=== PATIENT | female | born 1980 | race Caucasian/White ===

== ENCOUNTER 2016-07-20 14:22 | Emergency (ER) | payer OTHER ==
[~2016-07-20 14:22] MED LIST: ACET50TA PO; ALBU17IN INH; ANUS2.5C2 TOP; BUSP10TA PO; CLAR10CA3 PO; LEVO150T7 PO; MOTR200T44 PO; MULTCHW13 PO
--- NOTE | 2016-07-20 16:31 | REP ---
Clinical: Cough and shortness of breath . Comparison: None . Technique: PA and lateral. Findings: The mediastinum and cardiac silhouette are normal. The lung clemens are clear and without acute consolidation, effusion, or pneumothorax. The skeletal structures are intact and normal. Impression: 1. No acute cardiopulmonary process. Signed by Negro Arnett MD 07/20/2016 04:23 P
[2016-07-20] MEDS ORDERED: AMOXICILLIN 250MG/5ML SUSP ORAL SYRINGE *ED As Ordered ONE (17:18)
--- NOTE | 2016-07-20 17:29 | EDDOCDS ---
Physician Documentation [facility] Name: Zee Rutledge Age: 36 yrs Sex: Female : 1980 Arrival Date: 07/20/2016 Time: 14:22 Bed I8 / 16 Private MD: Sloane Kang Disposition: 07/20/16 17:14 Discharged to Home/Self Care. Impression: Acute upper respiratory infection, unspecified, Acute lymphadenitis of face, head and neck, Tobacco use, Tobacco abuse counseling. - Condition is Stable. - Discharge Instructions: Smoking Cessation, Smoking Hazards, Upper Respiratory Infection, Adult. - Prescriptions for Amoxicillin 400 mg/5 mL Oral Suspension for Reconstitution - take 10 milliliter by ORAL route every 12 hours for 10 days; 220 milliliter. - Medication Reconciliation, Local Pharmacy Hours form. - Follow up: Sloane Kang; When: 1 week; Reason: Recheck today's complaints, Continuance of care. - Problem is new. - Symptoms are unchanged. - Notes: STOP SMOKING Keep hydrated Use Ibuprofen and Tylenol, as needed, for pain or fever >101.5 Use OTC cold medications to control symptoms Return to the ED for worsening swelling, inability to open your mouth more than the width of 2 fingers, difficult swallowing/drooling, high fever, difficulty breathing or any other concerns Historical: - Allergies: no known allergies; - Home Meds: 1. levothyroxine 200 mcg Oral tab 1 tab once daily 2. loratadine 10 mg Oral tab 1 tab once daily 3. BuSpar 10 mg oral tab daily 4. venlafaxine oral Unknown oral once daily 5. ventolin inhaler as needed - PMHx: Thyroid problem; Anxiety; Asthma; - PSHx: cyct removal; Tonsillectomy; - Social history: Smoking status: Patient uses tobacco products, current every day smoker. No barriers to communication noted, The patient speaks fluent Swedish, Speaks appropriately for age. - Family history: No immediate family members are acutely ill. - : The pt / caregiver states he / she is not on anticoagulants. Home medication list is obtained from the patient. - Exposure Risk Screening:: None identified. 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 7 in. (170.18 cm) (R); Pain 2/10; 17:26 BP 100 / 68; Pulse 88; Resp 18; Temp 97.4; Pulse Ox 98% on R/A; dls 14:24 Body Mass Index 31.32 (90.72 kg, 170.18 cm) gr2 MDM: 16:08 Chest, 2 View (pa\E\lat) Ordered. EDMS 16:46 Strep Screen, Nursing ordered. le 16:59 Financial registration complete. gjb 17:09 GATS (NEGATIVE STREP SCREEN) Ordered. EDMS 17:12 [facility] Payment Agreement was scanned into [employer] and attached to record. gjb 17:15 Amoxicillin (Peds >2mo, 45mg/kg) Suspension 500 mg PO once; max dose 1000mg ordered. le Administered Medications: 17:25 Drug: Amoxicillin (Peds >2mo, 45mg/kg) 500 mg [amoxicillin 250 mg/5 mL oral suspension dls (10 mL)] Route: PO; Signatures: Dispatcher [employer] EDMS Lilia Hall, RN Janessa Rockwell RN RN dls Westcott, Lisa, FNP FNP le Belles, Michael,RN RN Zulema Wasserman The chart was reviewed and I authenticate all verbal orders and agree with the evaluation and treatment provided.Attachments: 17:12 [facility] Payment Agreement gj [email or web address]
--- NOTE | 2016-07-20 17:29 | EDDOCDS ---
Nurse's Notes [facility] Name: Zee Rutledge Age: 36 yrs Sex: Female : 1980 Arrival Date: 07/20/2016 Time: 14:22 Bed I8 / 16 Private MD: Sloane Kang Diagnosis: Acute upper respiratory infection, unspecified;Acute lymphadenitis of face, head and neck;Tobacco use;Tobacco abuse counseling Presentation: 07/20 14:32 Presenting complaint: Patient states: swelling behind left ear and chest congestion for srm 4 days. Adult Sepsis Screening: The patient does not have new or worsening altered mentation. Patient's respiratory rate is less than 22. Systolic blood pressure is greater than 100. Patient has a qSOFA score of 0- Negative Sepsis Screen. Suicide/Homicide risk assessment- the patient denies having any suicidal and/or homicidal ideations and does not present with any other emotional, behavioral or mental health complaints. 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 Transition of care: patient was not received from another setting of care. 14:32 Acuity: LILLIAN Level 4 srm 14:32 Method Of Arrival: Walkin/Carried/Asstd srm Triage Assessment: 14:35 General: Appears in no apparent distress, Behavior is appropriate for age, cooperative. srm Pain: Denies pain. HIV screening NA for this visit Offered previously. 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 levothyroxine 200 mcg Oral tab 1 tab once daily 2. loratadine 10 mg Oral tab 1 tab once daily 3. BuSpar 10 mg oral tab daily 4. venlafaxine oral Unknown oral once daily 5. ventolin inhaler as needed - PMHx: Thyroid problem; Anxiety; Asthma; - PSHx: cyct removal; Tonsillectomy; - Social history: Smoking status: Patient uses tobacco products, current every day smoker. No barriers to communication noted, The patient speaks fluent Spanish, Speaks appropriately for age. - Family history: No immediate family members are acutely ill. - : The pt / caregiver states he / she is not on anticoagulants. Home medication list is obtained from the patient. - Exposure Risk Screening:: None identified. Screenin:11 Screening information is obtained from the patient. Fall risk: No risks identified. mb9 Assistance ADL's: requires no assistance with activities of daily living. Abuse/DV Screen: The patient / caregiver reports he/she is: not in a situation that causes fear, pain or injury. Nutritional screening: No deficits noted. Advance Directives: There is no active DNR order. home support is adequate. Assessment: 16:11 General: Appears in no apparent distress, Behavior is appropriate for age, cooperative. mb9 Pain: Denies pain. Respiratory: Airway is patent Respiratory effort is even, unlabored, Breath sounds are clear bilaterally. Reports cough that is. 17:05 Reassessment: Patient appears in no apparent distress at this time. General: Appears in mb9 no apparent distress, Behavior is appropriate for age, cooperative. Respiratory: Airway is patent Respiratory effort is even, unlabored. Vital Signs: 14:24 BP 105 / 72; Pulse 97; Resp 18 S; Temp 99.0(O); Pulse Ox 97% on R/A; Weight 90.72 kg gr2 (R); Height 5 ft. 7 in. (170.18 cm) (R); Pain 2/10; 17:26 BP 100 / 68; Pulse 88; Resp 18; Temp 97.4; Pulse Ox 98% on R/A; dls 14:24 Body Mass Index 31.32 (90.72 kg, 170.18 cm) gr2 Vitals: 14:24 Log In Time: July 20, 2016 at 14:24. gr2 ED Course: 14:23 Patient visited by Olivia Michelle. gr2 14:23 Patient moved to Waiting gr2 14:24 Sloane Kang is Private Physician. gr2 14:26 Patient visited by Olivia Michelle. gr2 14:26 Patient moved to Pre RCE gr2 14:33 Triage Initiated srm 15:58 Patient moved to I8 / 16 srm 16:11 Patient visited by Yg Kasper RN. mb9 16:11 The patient / caregiver is instructed regarding the plan of care and ED course. mb9 16:30 Kristen Camp FNP is PHCP. le 16:39 Chest, 2 View (pa\E\lat) Returned. EDMS 16:43 Patient visited by Kristen Camp FNP. le 16:43 Patient visited by Kristen Camp FNP. le 17:10 GATS (NEGATIVE STREP SCREEN) Sent. joana 17:12 [facility] Payment Agreement was scanned into [employer] and attached to record. tashi 17:14 Sloane Kang is Referral Physician. le 17:27 No IV's were initiated during this patient's visit. No procedures done that require dls assistance. Administered Medications: 17:25 Drug: Amoxicillin (Peds >2mo, 45mg/kg) 500 mg [amoxicillin 250 mg/5 mL oral suspension dls (10 mL)] Route: PO; Order Results: Radiology Order: Chest, 2 View (pa\E\lat) Test: Chest, 2 View (pa\E\lat) REASON FOR EXAMINATION: Cough;Shortness of Breath; Clinical: Cough and shortness of breath .; ; Comparison: None .; ; Technique: PA and lateral.; ; Findings:; The mediastinum and cardiac silhouette are normal. The lung clemens are clear and; without acute consolidation, effusion, or pneumothorax. The skeletal structures; are intact and normal.; ; Impression:; 1. No acute cardiopulmonary process.; ; ; Signed by; Negro Arnett MD 07/20/2016 04:23 P; Outcome: 17:14 Discharge ordered by Provider. le 17:26 Discharge Assessment: Patient awake, alert and oriented x 3. No cognitive and/or dls functional deficits noted. Patient verbalized understanding of disposition instructions. patient administered narcotics - no. The following High Risk Discharge criteria are identified: None. Discharged to home ambulatory. Condition: stable. Discharge instructions given to patient, Instructed on discharge instructions, follow up and referral plans. medication usage, Demonstrated understanding of instructions, medications, Pt was receptive of discharge instructions/ teaching. Prescriptions given X 1. No special radiology studies were completed. Property sent home with patient. 17:28 Patient left the ED. dls Signatures: Dispatcher [employer] EDMS Lilia Hall RN RN srm Scott, Debra, RN RN dls Westcott, Lisa, FNP FNP le Raymond, Gainslee gr2 Yg Kasper RN RN mb9 Beck, Gabriela gjb MTDD
--- NOTE | 2016-07-22 18:28 | EDDOCDS ---
Nurse's Notes [facility] Name: Zee Rutledge Age: 36 yrs Sex: Female : 1980 Arrival Date: 07/20/2016 Time: 14:22 Bed I8 / 16 Private MD: Sloane Kang Diagnosis: Acute upper respiratory infection, unspecified;Acute lymphadenitis of face, head and neck;Tobacco use;Tobacco abuse counseling Presentation: 07/20 14:32 Presenting complaint: Patient states: swelling behind left ear and chest congestion for srm 4 days. Adult Sepsis Screening: The patient does not have new or worsening altered mentation. Patient's respiratory rate is less than 22. Systolic blood pressure is greater than 100. Patient has a qSOFA score of 0- Negative Sepsis Screen. Suicide/Homicide risk assessment- the patient denies having any suicidal and/or homicidal ideations and does not present with any other emotional, behavioral or mental health complaints. 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 Transition of care: patient was not received from another setting of care. 14:32 Acuity: LILLIAN Level 4 srm 14:32 Method Of Arrival: Walkin/Carried/Asstd srm Triage Assessment: 14:35 General: Appears in no apparent distress, Behavior is appropriate for age, cooperative. srm Pain: Denies pain. HIV screening NA for this visit Offered previously. 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 levothyroxine 200 mcg Oral tab 1 tab once daily 2. loratadine 10 mg Oral tab 1 tab once daily 3. BuSpar 10 mg oral tab daily 4. venlafaxine oral Unknown oral once daily 5. ventolin inhaler as needed - PMHx: Thyroid problem; Anxiety; Asthma; - PSHx: cyct removal; Tonsillectomy; - Social history: Smoking status: Patient uses tobacco products, current every day smoker. No barriers to communication noted, The patient speaks fluent Uzbek, Speaks appropriately for age. - Family history: No immediate family members are acutely ill. - : The pt / caregiver states he / she is not on anticoagulants. Home medication list is obtained from the patient. - Exposure Risk Screening:: None identified. Screenin:11 Screening information is obtained from the patient. Fall risk: No risks identified. mb9 Assistance ADL's: requires no assistance with activities of daily living. Abuse/DV Screen: The patient / caregiver reports he/she is: not in a situation that causes fear, pain or injury. Nutritional screening: No deficits noted. Advance Directives: There is no active DNR order. home support is adequate. Assessment: 16:11 General: Appears in no apparent distress, Behavior is appropriate for age, cooperative. mb9 Pain: Denies pain. Respiratory: Airway is patent Respiratory effort is even, unlabored, Breath sounds are clear bilaterally. Reports cough that is. 17:05 Reassessment: Patient appears in no apparent distress at this time. General: Appears in mb9 no apparent distress, Behavior is appropriate for age, cooperative. Respiratory: Airway is patent Respiratory effort is even, unlabored. Vital Signs: 14:24 BP 105 / 72; Pulse 97; Resp 18 S; Temp 99.0(O); Pulse Ox 97% on R/A; Weight 90.72 kg gr2 (R); Height 5 ft. 7 in. (170.18 cm) (R); Pain 2/10; 17:26 BP 100 / 68; Pulse 88; Resp 18; Temp 97.4; Pulse Ox 98% on R/A; dls 14:24 Body Mass Index 31.32 (90.72 kg, 170.18 cm) gr2 Vitals: 14:24 Log In Time: July 20, 2016 at 14:24. gr2 ED Course: 14:23 Patient visited by Olivia Michelle. gr2 14:23 Patient moved to Waiting gr2 14:24 Sloane Kang is Private Physician. gr2 14:26 Patient visited by Olivia Michelle. gr2 14:26 Patient moved to Pre RCE gr2 14:33 Triage Initiated srm 15:58 Patient moved to I8 / 16 srm 16:11 Patient visited by Yg Kasper RN. mb9 16:11 The patient / caregiver is instructed regarding the plan of care and ED course. mb9 16:30 Kristen Camp FNP is PHCP. le 16:39 Chest, 2 View (pa\E\lat) Returned. EDMS 16:43 Patient visited by Kristen Camp FNP. le 16:43 Patient visited by Zoë, Kristen, POOL TABLE MECHANIC. le 17:10 GATS (NEGATIVE STREP SCREEN) Sent. mb9 17:12 [facility] Payment Agreement was scanned into [employer] and attached to record. gjb 17:14 Sloane Kang is Referral Physician. le 17:27 No IV's were initiated during this patient's visit. No procedures done that require dls assistance. 20:42 T-Sheet-- Draft Copy was scanned into [employer] and attached to record. klr Administered Medications: 17:25 Drug: Amoxicillin (Peds >2mo, 45mg/kg) 500 mg [amoxicillin 250 mg/5 mL oral suspension dls (10 mL)] Route: PO; Order Results: Lab Order: GATS (NEGATIVE STREP SCREEN); SPEC'M 07/20/16 00:00 Test: GATS CULTURE (NEG STREP SCR); Value: GATS RESULT NEGATIVE FOR STREP PYOGENES (GROUP A); Status: F Test: GATS CULTURE (NEG STREP SCR); Value: <EXTERNAL COMMENT eCWMed> FULL REPORT IN LAB NOTES (eCW and Medent).; Status: F Radiology Order: Chest, 2 View (pa\E\lat) Test: Chest, 2 View (pa\E\lat) REASON FOR EXAMINATION: Cough;Shortness of Breath; Clinical: Cough and shortness of breath .; ; Comparison: None .; ; Technique: PA and lateral.; ; Findings:; The mediastinum and cardiac silhouette are normal. The lung clemens are clear and; without acute consolidation, effusion, or pneumothorax. The skeletal structures; are intact and normal.; ; Impression:; 1. No acute cardiopulmonary process.; ; ; Signed by; Negro Arnett MD 07/20/2016 04:23 P; Outcome: 17:14 Discharge ordered by Provider. le 17:26 Discharge Assessment: Patient awake, alert and oriented x 3. No cognitive and/or dls functional deficits noted. Patient verbalized understanding of disposition instructions. patient administered narcotics - no. The following High Risk Discharge criteria are identified: None. Discharged to home ambulatory. Condition: stable. Discharge instructions given to patient, Instructed on discharge instructions, follow up and referral plans. medication usage, Demonstrated understanding of instructions, medications, Pt was receptive of discharge instructions/ teaching. Prescriptions given X 1. No special radiology studies were completed. Property sent home with patient. 17:28 Patient left the ED. dls Signatures: Dispatcher [employer] EDMS Lilia Hall, RN RN srm Janessa Kang RN RN dls Kristen Camp, Olivia Burt 2 Yg Kasper RN RN mb9 Zulema Carter Kathie klr Chart Complete MTDD
--- NOTE | 2016-07-22 18:28 | EDDOCDS ---
Physician Documentation [facility] Name: Zee Rutledge Age: 36 yrs Sex: Female : 1980 Arrival Date: 07/20/2016 Time: 14:22 Bed I8 / 16 Private MD: Sloane Kang Disposition: 07/20/16 17:14 Discharged to Home/Self Care. Impression: Acute upper respiratory infection, unspecified, Acute lymphadenitis of face, head and neck, Tobacco use, Tobacco abuse counseling. - Condition is Stable. - Discharge Instructions: Smoking Cessation, Smoking Hazards, Upper Respiratory Infection, Adult. - Prescriptions for Amoxicillin 400 mg/5 mL Oral Suspension for Reconstitution - take 10 milliliter by ORAL route every 12 hours for 10 days; 220 milliliter. - Medication Reconciliation, Local Pharmacy Hours form. - Follow up: Sloane Kang; When: 1 week; Reason: Recheck today's complaints, Continuance of care. - Problem is new. - Symptoms are unchanged. - Notes: STOP SMOKING Keep hydrated Use Ibuprofen and Tylenol, as needed, for pain or fever >101.5 Use OTC cold medications to control symptoms Return to the ED for worsening swelling, inability to open your mouth more than the width of 2 fingers, difficult swallowing/drooling, high fever, difficulty breathing or any other concerns Historical: - Allergies: no known allergies; - Home Meds: 1. levothyroxine 200 mcg Oral tab 1 tab once daily 2. loratadine 10 mg Oral tab 1 tab once daily 3. BuSpar 10 mg oral tab daily 4. venlafaxine oral Unknown oral once daily 5. ventolin inhaler as needed - PMHx: Thyroid problem; Anxiety; Asthma; - PSHx: cyct removal; Tonsillectomy; - Social history: Smoking status: Patient uses tobacco products, current every day smoker. No barriers to communication noted, The patient speaks fluent [place], Speaks appropriately for age. - Family history: No immediate family members are acutely ill. - : The pt / caregiver states he / she is not on anticoagulants. Home medication list is obtained from the patient. - Exposure Risk Screening:: None identified. 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 7 in. (170.18 cm) (R); Pain 2/10; 17:26 BP 100 / 68; Pulse 88; Resp 18; Temp 97.4; Pulse Ox 98% on R/A; dls 14:24 Body Mass Index 31.32 (90.72 kg, 170.18 cm) gr2 MDM: 16:08 Chest, 2 View (pa\E\lat) Ordered. EDMS 16:46 Strep Screen, Nursing ordered. le 16:59 Financial registration complete. gjb 17:09 GATS (NEGATIVE STREP SCREEN) Ordered. EDMS 17:12 [facility] Payment Agreement was scanned into [employer] and attached to record. gjb 17:15 Amoxicillin (Peds >2mo, 45mg/kg) Suspension 500 mg PO once; max dose 1000mg ordered. le 20:42 T-Sheet-- Draft Copy was scanned into [employer] and attached to record. klr Administered Medications: 17:25 Drug: Amoxicillin (Peds >2mo, 45mg/kg) 500 mg [amoxicillin 250 mg/5 mL oral suspension dls (10 mL)] Route: PO; Signatures: Dispatcher [employer] EDMS Lilia Hall RN Janessa Rockwell RN RN dls Westcott, Lisa, COMPLEX DIRECTOR COMPLEX DIRECTOR Yg ArambulaRN RN Zulema Wasserman Kathie kljacob The chart was reviewed and I authenticate all verbal orders and agree with the evaluation and treatment provided.Attachments: 17:12 [facility] Payment Agreement [facility] 20:42 T-Sheet-- Draft Copy klr Chart Complete MTDD
--- NOTE | 2016-07-22 18:28 | EDDOCDS ---
Physician Documentation [facility] Name: Zee Rutledge Age: 36 yrs Sex: Female : 1980 Arrival Date: 07/20/2016 Time: 14:22 Bed I8 / 16 Private MD: Sloane Kang Disposition: 07/20/16 17:14 Discharged to Home/Self Care. Impression: Acute upper respiratory infection, unspecified, Acute lymphadenitis of face, head and neck, Tobacco use, Tobacco abuse counseling. - Condition is Stable. - Discharge Instructions: Smoking Cessation, Smoking Hazards, Upper Respiratory Infection, Adult. - Prescriptions for Amoxicillin 400 mg/5 mL Oral Suspension for Reconstitution - take 10 milliliter by ORAL route every 12 hours for 10 days; 220 milliliter. - Medication Reconciliation, Local Pharmacy Hours form. - Follow up: Sloane Kang; When: 1 week; Reason: Recheck today's complaints, Continuance of care. - Problem is new. - Symptoms are unchanged. - Notes: STOP SMOKING Keep hydrated Use Ibuprofen and Tylenol, as needed, for pain or fever >101.5 Use OTC cold medications to control symptoms Return to the ED for worsening swelling, inability to open your mouth more than the width of 2 fingers, difficult swallowing/drooling, high fever, difficulty breathing or any other concerns Historical: - Allergies: no known allergies; - Home Meds: 1. levothyroxine 200 mcg Oral tab 1 tab once daily 2. loratadine 10 mg Oral tab 1 tab once daily 3. BuSpar 10 mg oral tab daily 4. venlafaxine oral Unknown oral once daily 5. ventolin inhaler as needed - PMHx: Thyroid problem; Anxiety; Asthma; - PSHx: cyct removal; Tonsillectomy; - Social history: Smoking status: Patient uses tobacco products, current every day smoker. No barriers to communication noted, The patient speaks fluent Israeli, Speaks appropriately for age. - Family history: No immediate family members are acutely ill. - : The pt / caregiver states he / she is not on anticoagulants. Home medication list is obtained from the patient. - Exposure Risk Screening:: None identified. 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 7 in. (170.18 cm) (R); Pain 2/10; 17:26 BP 100 / 68; Pulse 88; Resp 18; Temp 97.4; Pulse Ox 98% on R/A; dls 14:24 Body Mass Index 31.32 (90.72 kg, 170.18 cm) gr2 MDM: 16:08 Chest, 2 View (pa\E\lat) Ordered. EDMS 16:46 Strep Screen, Nursing ordered. le 16:59 Financial registration complete. gjb 17:09 GATS (NEGATIVE STREP SCREEN) Ordered. EDMS 17:12 [facility] Payment Agreement was scanned into [employer] and attached to record. gjb 17:15 Amoxicillin (Peds >2mo, 45mg/kg) Suspension 500 mg PO once; max dose 1000mg ordered. le 20:42 T-Sheet-- Draft Copy was scanned into [employer] and attached to record. klr Administered Medications: 17:25 Drug: Amoxicillin (Peds >2mo, 45mg/kg) 500 mg [amoxicillin 250 mg/5 mL oral suspension dls (10 mL)] Route: PO; Signatures: Dispatcher [employer] EDMS Lilia Hall RN Janessa Rockwell RN RN dls Westcott, Lisa, TECHNICAL SALES ASSOCIATE TECHNICAL SALES ASSOCIATE Yg ArambulaRN RN Zulema Wasserman Kathie kljacob The chart was reviewed and I authenticate all verbal orders and agree with the evaluation and treatment provided.Attachments: 17:12 [facility] Payment Agreement [facility] 20:42 T-Sheet-- Draft Copy klr Chart Complete MTDD
== END 2016-07-20 17:28 | disposition home or self-care (01) ==
LOC: M ED 14:22
DX: J06.9 Acute upper respiratory infection, unspecified (principal); L04.0 Acute lymphadenitis of face, head and neck; J45.909 Unspecified asthma, uncomplicated; E07.9 Disorder of thyroid, unspecified; F41.9 Anxiety disorder, unspecified; Z79.899 Other long term (current) drug therapy; F17.210 Nicotine dependence, cigarettes, uncomplicated

== ENCOUNTER → 2016-07-21 | Outpatient (CLI) | payer OTHER | LOC: M LAB 07-20 14:44 | PROVIDERS: ATTEND Internal Medicine Rheumatology | DX: M19.90 Unspecified osteoarthritis, unspecified site (principal) ==

== ENCOUNTER 2016-12-07 09:32 | Emergency (ER) | payer OTHER ==
[~2016-12-07] VITALS: Ht 170.2 cm; Wt 101.2 kg
[~2016-12-07 09:32] MED LIST changes: -MULTCHW13 PO; +MULTCHW14 PO
[2016-12-07 09:33] VITALS: BP 131/60
[2016-12-07] MEDS ORDERED: plaquenil (09:42)
[2016-12-07] MEDS ORDERED: LEVO200T4 (09:42)
[2016-12-07] MEDS ORDERED: HYDR10SO PO (10:10)
[2016-12-07] MEDS ORDERED: CLIN75REC PO (10:10)
== END 2016-12-07 10:16 | disposition home or self-care (01) ==
LOC: M ED 09:32
DX: K04.7 Periapical abscess without sinus (principal); J45.909 Unspecified asthma, uncomplicated; E03.9 Hypothyroidism, unspecified; F41.9 Anxiety disorder, unspecified; Z79.899 Other long term (current) drug therapy

== ENCOUNTER → 2017-08-03 | Outpatient (CLI) | payer OTHER ==
[2017-08-03 18:25] LABS: FREE T3 2.8 PG/ML (2.2-4.0); FREE T4 1.57 NG/DL (0.76-1.46); THYROID STIMULATING HORMONE 0.773 uIU/ML (0.358-3.740)
== END ==
LOC: M LAB 17:08
DX: E03.4 Atrophy of thyroid (acquired) (principal)
CPT/HCPCS: 84443

== ENCOUNTER → 2017-11-16 | Outpatient (CLI) | payer OTHER | LOC: M WUC 17:08 | DX: M51.37 Other intervertebral disc degeneration, lumbosacral region (principal) | CPT/HCPCS: 72110 ==

== ENCOUNTER → 2017-11-25 | Outpatient (REF) | LOC: M SMT 11:05 | DX: Z02.71 Encounter for disability determination (principal) ==

== ENCOUNTER → 2018-07-01 | Outpatient (CLI) | payer OTHER ==
[~2018-07-01] MED LIST changes: -ACET50TA PO; +CLIN75REC PO; +E-Z-GAS II EFFERVESCENT PACKET (SODIUM BICARB./CITRIC ACID/SIMETHICONE) As Ordered ONE; +E-Z-HD 98% w/w 340GM SUSP BTL As Ordered ONE; +E-Z-PAQUE 96% w/w SUSP 176GM BTL As Ordered ONE; +HYDR10SO PO; +ISOVUE-370 76% 100ML VIAL (Q9967) As Ordered ONE; +LEVO200T4; +MAPA500T2 PO; +plaquenil
--- NOTE | 2018-07-01 12:29 | REP ---
SOFT TISSUE CT STUDY OF THE NECK WITH IV CONTRAST: HISTORY: Bilateral localized swelling. Neck mass. Dysphagia. Comparison neck CT study is from December 12, 2010. CT CONTRAST DOSE: 75 mL of intravenous Isovue 370. CT FINDINGS: The parotid and submandibular glands are normal and symmetric. 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 No ectopic thyroid tissue is appreciated. No evidence of neck mass or adenopathy seen. No vascular abnormality is noted. Normal-sized anterior lymph nodes are visible. Epiglottis is normal. Laryngeal and subglottic airway is unremarkable. Peritonsillar soft tissues are unremarkable. The visualized paranasal sinuses are clear. No intraorbital abnormality is seen. The lung apices are clear. IMPRESSION: There is no evidence of neck mass or adenopathy. Very hypoplastic thyroid gland again noted. Electronically Signed by Evans Estrada MD 07/01/2018 03:17 P
--- NOTE | 2018-07-02 10:19 | REP ---
Esophagram The procedure was performed under the direct supervision of Dr. Doe. The images were reviewed with Dr. Doe. A single view PA chest x-ray is submitted as a petroleum engineering teacher film. The superior mediastinal structures are midline. The heart size is within normal limits. The lungs are clear. Liquid barium and gas producing granules were given in the erect position as well as liquid barium in the prone oblique positions in order to perform a double contrast esophagram examination. The oral and pharyngeal stages of deglutition are unremarkable. Esophageal transport is prompt and efficient and there is no esophagitis, stricture, mucosal ring or hiatal hernia. Gastroesophageal reflux is not demonstrated on this examination. Impression: Essentially unremarkable double contrast esophagram examination. 0.6 minutes of fluoro time was utilized for this procedure. Reviewed by JAMARI Cervantes 07/01/2018 05:05 P Electronically Signed by Hola Doe MD 07/02/2018 10:10 A
== END ==
LOC: M RAD 08:56
PROVIDERS: ATTEND Otolaryngology
DX: R13.10 Dysphagia, unspecified (principal); R22.1 Localized swelling, mass and lump, neck; E03.1 Congenital hypothyroidism without goiter
CPT/HCPCS: 70491; 74220; Q9967

== ENCOUNTER → 2018-08-07 | Outpatient (CLI) | payer OTHER ==
[~2018-08-07] MED LIST changes: -E-Z-GAS II EFFERVESCENT PACKET (SODIUM BICARB./CITRIC ACID/SIMETHICONE) As Ordered ONE; -E-Z-HD 98% w/w 340GM SUSP BTL As Ordered ONE; -E-Z-PAQUE 96% w/w SUSP 176GM BTL As Ordered ONE; -ISOVUE-370 76% 100ML VIAL (Q9967) As Ordered ONE
== END ==
LOC: M PLARAD 11:00
PROVIDERS: ATTEND Physician Assistant
DX: M48.061 Spinal stenosis, lumbar region without neurogenic claudication (principal)

== ENCOUNTER 2018-09-15 11:05 | Outpatient (CLI) | payer OTHER ==
[2018-09-15] MEDS ORDERED: MIDAZOLAM INJ 2 MG/2 ML VIAL (J2250) As Ordered ONE (11:36)
[2018-09-15 12:50] VITALS: BP 114/69
--- NOTE | 2018-09-15 14:19 | REP ---
MR LUMBAR SPINE WITHOUT CONTRAST: HISTORY: Back pain. COMPARISON: 08/14/2015. Decreased signal intensity on T2-weighted images is present in the L4-5 and L5-S1 intervertebral discs. The discs are decreased in height. These findings are consistent with disc degeneration. A small central disc protrusion is present at the L1-2 level. There is minimal compression of the thecal sac. The L1 nerves exit the neural foramina without compression. A diffuse disc bulge is present at the L2-3 level. There is minimal compression of the thecal sac. There is hypertrophy of the posterior articulating facets. The L2 nerves exit the neural foramina without compression . A diffuse disc bulge is present at the L3-4 level. There is hypertrophy of the ligamenta flava and posterior articulating facets. These findings produce mild central canal stenosis. The L3 nerves exit the neural foramina without compression. A diffuse disc bulge and small disc extrusion central and eccentric to the left are present at the L4-5 level. There is inferior migration of disc material. There is hypertrophy of the ligamentum flava and posterior articulating facets. These findings produce severe central canal stenosis. The L4 nerves exit the neural foramina without compression. A diffuse disc bulge and small central disc protrusion are present at the L5-S1 level. There is minimal compression of the thecal sac and left S1 nerve as it exits the thecal sac. There is hypertrophy of the posterior articulating facets. The L5 nerves exit the neural foramina without compression. The conus medullaris terminates at the level of the L1-2 intervertebral disc. There is a possible small syrinx. Increased signal intensity on T2-weighted images is present in the endplates of the L4 and 5 vertebral bodies. This represents degenerative change. IMPRESSION: 1. Small central disc protrusion at the L1-2 level with minimal thecal sac compression. 2. Diffuse disc bulge at the L2-3 level with minimal thecal sac compression. 3. Mild central canal stenosis at the L3-4 level secondary to disc bulge, ligamentous and facet hypertrophy. 4. Severe central canal stenosis at the L4-5 level secondary to disc bulge, disc extrusion and ligamentous and facet hypertrophy. 5. Diffuse disc bulge and small central disc protrusion at the L5-S1 level with minimal compression of the thecal sac and left S1 nerve as it exits the thecal sac. 6. There is a possible small syrinx in the conus medullaris. MR of the thoracic spine is recommended for further evaluation. Electronically Signed by Jason Witt MD 09/15/2018 02:23 P
== END 2018-09-15 13:10 | disposition home or self-care (01) ==
LOC: M SDC 11:05
PROVIDERS: ATTEND Physician Assistant
DX: M51.26 Other intervertebral disc displacement, lumbar region (principal); M51.27 Other intervertebral disc displacement, lumbosacral region; M48.061 Spinal stenosis, lumbar region without neurogenic claudication
CPT/HCPCS: 72148; 99156; 99157; J2250

== ENCOUNTER → 2019-05-28 | Outpatient (CLI) | payer OTHER ==
[2019-05-28 14:48] LABS: BLOOD UREA NITROGEN 9 MG/DL (7-18); CREATININE FOR GFR 0.93 MG/DL (0.55-1.30); GLOMERULAR FILTRATION RATE > 60.0 (>60)
== END ==
LOC: M LAB 13:04
PROVIDERS: ATTEND Physical Medicine & Rehabilitation
DX: M47.27 Other spondylosis with radiculopathy, lumbosacral region (principal)

== ENCOUNTER → 2019-07-29 | Outpatient (CLI) | payer OTHER ==
[~2019-07-29] MED LIST changes: +MIDAZOLAM INJ 2 MG/2 ML VIAL (J2250) As Ordered ONE; +PROHANCE 279.3MG/ML 15ML VIAL (A9576) As Ordered ONE; +PROHANCE 279.3MG/ML 5ML VIAL (A9576) As Ordered ONE; +fentaNYL 100 MCG/2 ML INJECTION (J3010) As Ordered ONE
[2019-07-29 16:35] VITALS: BP 129/68
--- NOTE | 2019-07-29 16:56 | REPVR ---
PROCEDURE INFORMATION: Exam: MR Cervical Spine Without and With Contrast Exam date and time: 07/29/2019 4:05 PM Age: 39 years old Clinical indication: Neck pain; Patient HX: Exam done under sedation; Additional info: Syringomyelia and syringomelia TECHNIQUE: Imaging protocol: Multiplanar magnetic resonance images of the cervical spine without and with intravenous contrast. Contrast material: PROHANCE; Contrast volume: 19 ml; Contrast route: IV; COMPARISON: CT Neck with contrast 07/01/2018 9:23 AM FINDINGS: Vertebrae: There is mild reversal the normal cervical lordosis. Spinal cord: There is increased signal in the cervical spinal cord at the C6 level just below the marked cord compression by a disc herniation at the C5-C6 level. T C2-C3: No disc disease. No spinal stenosis or narrowed neural foramen. C3-C4: No disc disease. No spinal stenosis or narrowed neural foramen. C4-C5: Diffusely bulging annulus which slightly posteriorly displaces the cervical spinal cord and narrows the spinal canal to 7.9 mm without cord compression. There is moderate narrowing of the right neural foramen. C5-C6: Large central/right paracentral disc herniation extending superiorly and inferiorly from the disc space and compressing the cervical spinal cord and narrowing the AP dimension of the canal to 6 mm. It also obstructs the right neural foramen likely affecting the right C6 nerve root. Increased signal is seen within the spinal cord bilaterally just below the level the disc herniation with possible cystic encephalomalacia. C6-C7: Asymmetrically bulging annulus and possible right paracentral disc herniation posteriorly displacing the cervical spinal cord without definite compression. The AP dimension of the spinal canal is 7.8 mm. There is moderate narrowing of the left neural foramen. Diffuse increased signal is seen in the cervical spinal cord. C7-T1: No disc disease. No spinal stenosis or narrowed neural foramen. Vertebral arteries: Expected flow voids in the vertebral arteries. Soft tissues: There is enhancement in the cervical spinal cord at the C6 level. IMPRESSION: There is marked compression of the cervical spinal cord at C5-C6 level predominantly to the right of midline with increased signal and enhancement in the cervical spinal cord just below the disc herniation and extending inferiorly to the C6-C7 disc space level. There is a small right paracentral disc herniation at C6-C7 without significant cord compression. Electronically signed by: Harleen Lopez On 07/29/2019 16:55:46 PM
--- NOTE | 2019-07-29 17:20 | REPVR ---
PROCEDURE INFORMATION: Exam: MR Thoracic Spine Without and With Contrast Exam date and time: 07/29/2019 4:05 PM Age: 39 years old Clinical indication: Pain in thoracic spine; With radiculopathy; Bilateral; Additional info: Syringomyelia and syringomelia TECHNIQUE: Imaging protocol: Multiplanar magnetic resonance images of the thoracic spine without and with intravenous contrast. Contrast material: PROHANCE; Contrast volume: 19 ml; Contrast route: IV; COMPARISON: CR SPINE LS COMPLETE 11/16/2017 5:14 PM FINDINGS: Vertebrae: No acute fractures in the thoracic spine. The thoracic spine alignment is normal. Spinal cord: Normal signal. No cord compression. T1-T2: No significant disc disease. No significant spinal canal stenosis. T2-T3: No significant disc disease. No significant spinal canal stenosis. T3-T4: No significant disc disease. No significant spinal canal stenosis. T4-T5: No significant disc disease. No significant spinal canal stenosis. T5-T6: Mild posterior left paracentral disc bulging. No significant spinal canal stenosis. T6-T7: Mild posterior left paracentral disc bulging. No significant spinal canal stenosis. T7-T8: Mild chronic degenerative disc desiccation with loss of normal T2 and STIR signal in the disc. Mild broad-based posterior disc bulging. No significant spinal canal stenosis. T8-T9: Moderate posterior left paracentral and circumferential disc bulging with mild left-sided spinal stenosis and left neuroforaminal stenosis. Chronic degenerative vertebral body endplate osteophytosis anteriorly at T8/T9. T9-T10: Chronic degenerative disc desiccation. No significant spinal canal stenosis. T10-T11: Chronic degenerative disc desiccation. No significant spinal canal stenosis. T11-T12: No significant disc disease. No significant spinal canal stenosis. Soft tissues: Unremarkable. No significant soft tissue or bony post IV contrast enhancement. IMPRESSION: 1. No acute fractures in the thoracic spine. The thoracic spine alignment is normal. 2. Multiple levels of chronic degenerative discovertebral disease at T5 through T11, as detailed above. 3. Mild left-sided spinal canal stenosis and left neuroforaminal stenosis at T8/T9. Electronically signed by: Michael Shelton On 07/29/2019 17:20:35 PM
== END ==
LOC: M RAD 12:49
PROVIDERS: ATTEND Physical Medicine & Rehabilitation
DX: G95.0 Syringomyelia and syringobulbia (principal); M50.223 Other cervical disc displacement at C6-C7 level; M50.03 Cervical disc disorder with myelopathy, cervicothoracic region; M50.020 Cervical disc disorder with myelopathy, mid-cervical region, unspecified level
CPT/HCPCS: 72156; 72157; A9576; J2250; J3010

== ENCOUNTER 2019-08-19 06:05 | Inpatient (IN) | payer OTHER ==
--- NOTE | 2019-08-18 11:28 | HPE ---
DATE OF ADMISSION: 08/19/2019 ATTENDING PHYSICIAN: Dr. Gildardo Cheung CHIEF COMPLAINT: Cervical myelopathy with spastic tetraplegia. Severe cervical spinal stenosis at C5-6. Cervical spinal stenosis at C6-7. Cervical spondylosis at C4 through C7. HISTORY: The patient is a 39-year-old female with neck pain, with upper extremity paraesthesias, weakness in right arm and worsening balance trouble. She has been using a cane for ambulation. Issues with urinary incontinence that have been attributed to . She has failed to improve with conservative treatment. She has consented for an elective anterior cervical decompression and fusion procedure with Dr. Cheung, possibly three level from C4-5 through C6-7. CURRENT MEDICATIONS: - baclofen 10 mg every 6 hours as needed for spasm - albuterol inhaler 2 puffs every 4 hours as needed - Zocor 10 mg daily - loratadine 10 mg daily - levothyroxine 200 mcg daily - buspirone 10 mg daily - naproxen 500 mg twice daily ALLERGIES: GABAPENTIN. CHRONIC MEDICAL CONDITIONS: Allergies, asthma, hyperlipidemia, hypothyroid, anxiety, depression, lupus. SOCIAL HISTORY: The patient is a tobacco user and just quit approximately 2 days ago. The patient rarely uses alcohol. REVIEW OF SYSTEMS: The patient denies fevers, chills, nausea, vomiting or diarrhea. She denies chest pain, shortness of breath, dizziness or headaches. She denies any recent abdominal pain. She denies any recent upper respiratory or urinary tract infection symptoms. She does continue to have neck pain with bilateral upper extremity paresthesias with weakness in the right upper extremity in addition to problems with balance and gait. PHYSICAL EXAMINATION: GENERAL: Well-nourished, well-developed female who appears to be in no apparent distress. She is alert, oriented and cooperative. Mood and affect seem appropriate. VITAL SIGNS: Blood pressure 138/76, heart rate 73, respirations 16. Height 5 feet 6 inches. Weight 213.8 pounds. Temperature 98.3. NECK: Supple without lymphadenopathy. HEART: Regular rate and rhythm. LUNGS: Clear to auscultation bilaterally. ABDOMEN: Bowel sounds are present. Abdomen is soft and nontender to palpation. MUSCULOSKELETAL: The patient does have a wide-based gait. Babinski is upgoing bilaterally. Clonus is 5 beats on the right lower extremity and 3 beats on the left. Straight leg raise bilaterally is negative. Deep tendon reflexes are 3+ at both knees and 2+ at both ankles. The patient does have positive Gwendolyn's test bilaterally in upper extremities. Brachial radialis is inverted on the left, 2 on the right. Triceps is 3 bilaterally in addition to the biceps being 3 bilaterally. She does not have neck pain with neck rotation in either direction. Negative Spurling's test. She does have decreased sensation in both hands and in the right arm. Weakness with abduction of the shoulder on the right compared to the left. Elements of weakness in the right more than left upper extremity which is diffuse. Weakness at the tibialis anterior and iliopsoas lower extremities. No tenderness to palpation around the neck. Voice is clear. Cervical spine x-rays, six views of the cervical spine, there are multilevel degenerative changes noted most pronounced at C4-5, C5-6, and C6-7. No acute fractures or dislocations are observed. There is a decrease in the disc height at these levels as well. Osteophytes noted posteriorly at C4 through C7. There is a straightening of the normal curvature but no obvious spondylolisthesis noted. MRI of the cervical spine, marked compression of the cervical spinal cord at C5-6 level predominantly to the right of midline with increase signal and enhancement in the cervical spinal cord just below the disc herniation and extending inferiorly to the C6-C7 disc space level. There is a small right paracentral disc herniation at C6-C7 without significant cord compression. IMPRESSION: Cervical myelopathy, NICOLE-D spastic tetraplegia. Severe cervical spinal stenosis at C5-6. Cervical spinal stenosis at C6-7. Cervical spondylosis at C4-5, C5-6, and C6-7. PLAN: The patient consented for an elective anterior cervical decompression and fusion procedure at C4-5, C5-6, and C6-7 with donor graft and likely partial corpectomy. Neuro monitoring may be considered during surgery with possible bone stimulator use postoperatively.
[~2019-08-19] VITALS: Ht 170.2 cm; Wt 99.8 kg
[2019-08-19] VITALS (7 sets, daily range): BP systolic 133–146; BP diastolic 78–90
[2019-08-19] MEDS: ceFAZolin SOD 2 GM in IV 1 EA IV ONE ×2 (06:00→07:57)
[~2019-08-19 06:05] MED LIST changes: +BACL10TA2 PO; -LEVO200T4; +LEVO200T4 PO; +LR 1,000 ML IV ONE; -MIDAZOLAM INJ 2 MG/2 ML VIAL (J2250) As Ordered ONE; +NAPR-885 PO; +PERCOCET 5MG/325MG TAB PO ONE; -PROHANCE 279.3MG/ML 15ML VIAL (A9576) As Ordered ONE; -PROHANCE 279.3MG/ML 5ML VIAL (A9576) As Ordered ONE; +SIMV20TA22 PO; +VENTAER INH; +VITA50005 PO; +VITAD1000T PO; -fentaNYL 100 MCG/2 ML INJECTION (J3010) As Ordered ONE
[2019-08-19 06:46] LABS: HEMATOCRIT 41.6 % (36.0-47.0); MEAN CORPUSCULAR HGB CONC 33.7 g/dl (32.0-36.5); PLATELET COUNT, AUTOMATED 309 10^3/uL (150-450); RED BLOOD COUNT 4.38 10^6/uL (4.00-5.40); WHITE BLOOD COUNT 8.9 10^3/uL (4.0-10.0)
[2019-08-19] MEDS ORDERED: MIDAZOLAM INJ 2 MG/2 ML VIAL (J2250) As Ordered ONE (06:47)
[2019-08-19] MEDS ORDERED: ePHEDrine SULFATE 25 MG/5 ML(5MG/ML) SYRINGE As Ordered ONE ×2 (06:48→08:49)
[2019-08-19] MEDS ORDERED: fentaNYL 250 MCG/5 ML INJECTION (J3010) As Ordered ONE (06:48)
[2019-08-19] MEDS ORDERED: PHENYLephrine HCL 500 MCG/5 ML (100MCG/ML) SYRINGE (J2370) As Ordered ONE (06:48)
[2019-08-19] MEDS ORDERED: SUGAMMADEX SODIUM 500 MG/5 ML VIAL (BRIDION) As Ordered ONE ×3 (06:51→06:59)
[2019-08-19] MEDS ORDERED: LIDOCAINE 2% INJ 100 MG/5 ML SDV (FOR ANES.) As Ordered ONE ×3 (06:51→10:41)
[2019-08-19] MEDS ORDERED: ROCURONIUM BROMIDE 50 MG/5 ML VIAL As Ordered ONE ×2 (06:51→09:02)
[2019-08-19] MEDS ORDERED: dexameTHASONE 4 MG/ML 1ML VIAL (J1100) As Ordered ONE (06:52)
[2019-08-19] MEDS ORDERED: propofoL 200 MG/20 ML VIAL As Ordered ONE ×2 (06:52→08:10)
[2019-08-19] MEDS ORDERED: ONDANSETRON 4MG/2ML VIAL (J2405) As Ordered ONE (06:52)
[2019-08-19 06:57] LABS: INR 0.96; PROTHROMBIN TIME 12.5 SECONDS (11.8-14.0)
[2019-08-19] MEDS ORDERED: propofoL 500 MG/50 ML VIAL As Ordered ONE ×2 (07:01→08:42)
[2019-08-19] MEDS ORDERED: methylPREDNISolone 500 MG VIAL (J2930) As Ordered ONE (07:16)
[2019-08-19] MEDS ORDERED: THROMBIN SOLN 20,000 UNITS KIT As Ordered ONE (07:16)
[2019-08-19] MEDS ORDERED: LIDOCAINE W/EPINEPHRINE 1% 20ML VIAL As Ordered ONE (07:16)
[2019-08-19] MEDS ORDERED: BACITRACIN PWD 50,000 UNITS VIAL As Ordered ONE ×2 (07:17→08:01)
[2019-08-19] MEDS ORDERED: REMIFENTANIL 1MG 3ML VIAL As Ordered ONE ×3 (07:29→11:41)
[2019-08-19] MEDS ORDERED: GLYCOPYRROLATE INJ 0.2 MG/ML 2 ML VIAL As Ordered ONE (08:23)
[2019-08-19] MEDS ORDERED: ACETAMINOPHEN 1000MG 100ML IV BTL (OFIRMEV) (J0131 PER 10MG) As Ordered ONE (09:07)
[2019-08-19] MEDS ORDERED: LR 1,000 ML IV SCH (13:15)
[2019-08-19] MEDS ORDERED: fentaNYL 100 MCG/2 ML INJECTION (J3010) IV PRN (13:15)
[2019-08-19] MEDS ORDERED: METOCLOPRAMIDE INJ 10MG/2ML VIAL (J2765) IV PRN (13:15)
[2019-08-19] MEDS ORDERED: oxyCODONE 5MG TAB PO PRN (13:15)
[2019-08-19] MEDS ORDERED: ONDANSETRON 4MG/2ML VIAL (J2405) IV PRN (13:15)
[2019-08-19] MEDS ORDERED: MEPERIDINE INJ 25 MG/ML VIAL (J2175) IV PRN (13:15)
--- NOTE | 2019-08-19 13:37 | REP ---
CERVICAL SPINE: Four views. HISTORY: Right partial corpectomy. Intraoperative imaging. FINDINGS: A sequence of four cross-table lateral views of the cervical spine are presented. The image time stamped 9:33 a.m. demonstrates an intraoperative probe at the anterior aspect of the C5-6 disc. Orotracheal tube is seen in place. The image time stamped 12:17 p.m. demonstrates ventral discectomy and fusion plating across the C4 through C6 levels. The bottom edge of the plate it is not well seen. The imaged time stamped 12:19 p.m. still does not optimally visualize the lower margin of the fusion plate. At 12:34 p.m., a lateral radiograph demonstrates ventral discectomy and fusion plating in good position across the C4 through C7 disc levels. Electronically Signed by Evans Estrada MD 08/19/2019 02:55 P
[2019-08-19] MEDS ORDERED: ALBUTEROL 90 MCG/ACT 8GM HFA INHALER INH PRN (14:16)
[2019-08-19] MEDS: ceFAZolin SOD 2 GM in IV 1 EA IV SCH ×2 (15:06→20:24)
[2019-08-19] MEDS: busPIRone 10 MG TAB PO SCH (15:06)
[2019-08-19] MEDS: LORATADINE 10 MG TAB PO SCH (15:06)
[2019-08-19] MEDS: PERCOCET 5MG/325MG TAB PO PRN ×2 (15:45→20:25)
[2019-08-19] MEDS: BACLOFEN 10 MG TAB PO PRN ×2 (16:40→23:33)
[2019-08-19] MEDS: METAMUCIL (PSYLLIUM) PACKET PO SCH (20:25)
[2019-08-19] MEDS ORDERED: SIMVASTATIN 10 MG TAB PO SCH (21:00)
[2019-08-19] MEDS ORDERED: zolPIDEM TARTRATE 5 MG TAB PO ONE (22:15)
[2019-08-20 02:00] VITALS: BP 169/101
[2019-08-20] MEDS: PERCOCET 5MG/325MG TAB PO PRN (02:23)
[2019-08-20 03:10] VITALS: BP 151/91
[2019-08-20] MEDS ORDERED: PERC5TAB12 PO (05:44)
[2019-08-20] MEDS: BACLOFEN 10 MG TAB PO PRN (05:54)
[2019-08-20 06:00] VITALS: BP 150/89
[2019-08-20] MEDS ORDERED: LEVOTHYROXINE 100MCG TABLET (0.1MG) PO SCH (06:00)
[2019-08-20] MEDS: METAMUCIL (PSYLLIUM) PACKET PO SCH (09:00)
[2019-08-20] MEDS: LORATADINE 10 MG TAB PO SCH (09:22)
[2019-08-20] MEDS: busPIRone 10 MG TAB PO SCH (09:22)
--- NOTE | 2019-08-23 12:49 | DSES ---
DATE OF ADMISSION: 08/19/2019 DATE OF DISCHARGE: 08/20/2019 ADMISSION DIAGNOSES: Spastic quadriparesis. Balance difficulties. Upper and lower extremity numbness. Cervical myelopathy. Cervical spinal stenosis with C4-5 and C5-6, C6-7. OTHER DIAGNOSES: Allergies. Asthma. Elevated lipids. Hypothyroidism. Anxiety. Depression. Lupus. DISCHARGE DIAGNOSES Spastic quadriparesis. Upper and lower extremity numbness. Balance difficulties. Cervical myelopathy. Cervical spinal stenosis C4-5, C5-6, C6-7 status post anterior cervical decompression and fusion C4-5, C5-6, C6-7 to include partial corpectomy. HISTORY: This is a pleasant 39-year-old female patient presenting to the office with upper and lower extremity numbness and balance difficulties, noted to have cervical myelopathy and spastic quadriparesis and cervical spinal stenosis at C4-5, C5-6 and C6-7. Due to her symptoms , it was recommended for her to undergo an anterior cervical decompression and fusion C4-5, C5-6, C6-7 to include partial corpectomy. OPERATION PERFORMED: Anterior cervical decompression and fusion C4-5, C5-6, C6-7 with partial corpectomy. HOSPITAL COURSE: The patient was admitted on day of surgery and underwent the above listed surgery. She did well and there was no complications. She was able to tolerate the brace and her pain was controlled. On day of discharge she was given instructions to include but not limited to the use of the cervical collar, her wound monitoring and activity limitations. She was weightbearing as tolerated on her lower extremities. She will resume her preoperative medications and diet. She will use oral pain medications for pain control. She will followup in our office in 7-10 days for surgical followup. Please refer to the medical record for further details.
--- NOTE | 2019-08-24 07:41 | RO ---
DATE OF PROCEDURE: 08/19/2019 PREOPERATIVE DIAGNOSES: Spastic quadriparesis. NICOLE D cervical myelopathy, severe cervical spinal stenosis C4-5 and severe cervical spinal stenosis C5-6 and cervical spinal stenosis at C4-5, C5-6, C6-7. POSTOPERATIVE DIAGNOSES: Spastic quadriparesis. NICOLE D cervical myelopathy, severe cervical spinal stenosis C4-5 and severe cervical spinal stenosis C5-6 and cervical spinal stenosis at C4-5, C5-6, C6-7. PROCEDURE PERFORMED: Partial corpectomy of C5, anterior discectomy C4-5 and C6-7, arthrodesis C4-5, C5-6 and C6-7. Anterior cervical instrumentation for spine surgery C4-5, C6-7, use of structural allograft for spine surgery C4-5, C5-6, C6-7. SURGEON: Dr. Gildardo Cheung RESPONDER: TOÑO Morales. ANESTHESIA: General. ESTIMATED BLOOD LOSS: Less than 50 mL replaced with crystalloid. COMPARISON: No complications. INDICATIONS: Tia suffers from spastic tetraparesis secondary to severe spinal stenosis at C5-6. Has significant stenosis in addition at C4-5 at C6-7. She has weakness and sensory changes in all four extremities as well as motor weakness. Has elected for surgical intervention. Consent reviewed in detail including a shelley discussion of the pathology involved, the procedure proposed, alternatives including doing nothing, we also had a discussion of the use of donor bone or iliac crest bone. Also was the matter of the consenting process and discussion process. We talked about the patient's smoking history and the patient agreed to cease smoking immediately. We talked about risks including but not limited to risk of pain, failure, infection, bleeding blood loss, incomplete relief of symptoms, hoarseness, swallowing trouble, need for more surgery and additional issues. We talked about the likelihood that because of the significant stenosis and the distance of myelomalacia, cord signal change and neurologic findings at all four extremities that it would be unlikely for her to get complete relief of her symptoms. The patient understands and agrees to proceed with surgery. DESCRIPTION OF OPERATIVE PROCEDURE: Identified in the holding area, site and side verified, brought to the operating room. General endotracheal anesthesia was administered. In addition, we utilized neuromonitoring for this procedure because of the presence of severe neurologic findings at baseline. Through the course the procedure the neuromonitoring either remained stable or improved slightly according to the neuromonitoring bakery technician. Once she was sterilely prepped and draped usual fashion for exposure, time-out was accomplished, we began the surgical procedure. I did a right-sided approach to the patient's right. I utilized loupe magnification and a headlamp. Mr. Murguia stood on the patient's left in the capacity of bankruptcy assistant. The incision was outlined with a marking pen, infiltrated with 1% lidocaine with epinephrine and made with a 10 blade knife developed down through skin and subcuticular tissues. Platysma was identified, elevated and divided using bipolar cautery and tenotomy scissors. Sternocleidomastoid was identified. Omohyoid was identified. Here the dissection became tedious likely because of the patient's smoking history, her neck was relatively fibrotic. I did sacrificed the omohyoid to assist in exposure. I identified the carotid sheath. Dissection continued medial to the carotid sheath down to the prevertebral fascia. I palpated anterior osteophyte and cleared anterior osteophyte. We placed a bayonet spinal needle into the anterior annulus and we verified our levels with a cross-table lateral x-ray. For further details, refer to that x-ray. Next the dissection continued superiorly and inferiorly exposing C4-5 through C6-7. Longus coli muscle was elevated at its medial border allowing retractor placement and access. Some large anterior osteophyte was also removed using Leksell's at C5-6. C5-6 was the level we approached first because of the presence of severe spinal stenosis and myelopathy at that level. Distraction pins were placed across C5-6 as well as the retractor. We further opened annulus using an 11 blade. Mr. Murguia assisted in stabilizing the retractors as well as retraction and use of suction device. Disc material was removed using pituitaries. Because this was significantly collapsed, I utilized the oval bur to remove about 50% of the inferior corpus of C5 to allow exposure to adequately decompress the severely stenotic level. The dissection continued down the posterior longitudinal ligament which was exposed. I elevated the posterior longitudinal ligament using curved curettes and was easily removed on the patient's left. The stenosis was more severe to the right and after the left side of the posterior longitudinal ligament was removed, I was able to further free the right side and removed it using #1 and 2 Kerrisons further decompressing the right sumeet cord. Next uncinate processes at 6 were debrided this as well allowing significant decompression. We rasped C5-6. Sounded and selected a 5.7 graft obtained and implanted a 5.7 graft. Next, removed distraction pins at C5, removed the retractors to expose C6-7 placed the distractor pin at C7, distracted across C6-7. The annulus was opened with an 11 blade pituitaries were utilized to remove disc material. Here I was not required to do a partial corpectomy at C6. I did remove disc material. We removed cartilaginous endplates using curettes and encountered posterior longitudinal ligament, which was again elevated using curettes and removed using #1 and 2 Kerrisons. Irrigation was accomplished, rasps were utilized, sound was utilized and I was able to place 5 x 7 graft at C6-7. Next, removed the inferior distraction pin plugged with wax. Removed the C6 distraction pin plugged with wax. Subluxed the retractor upwards to expose C4-5. Placed the distraction pins at C4-5. Distracted across C4-5 opened annulus with 11 blade. Remove disc material using pituitaries and curettes. Removed cartilaginous endplates using curettes. Encountered posterior longitudinal ligament, elevated it and removed it using #1 and 2 Kerrisons. Irrigation was accomplished, rasps were utilized. I again sounded for a size 5 x 7 graft was placed. Next we obtained and placed a size 48 mm skyline plate which seemed to fit appropriately. The screw was placed superiorly then inferiorly at the plate. We drilled and placed 14 mm screws. The plate was slightly elevated at the right inferior C7 and I placed a 15 mm screw in the right inferior C7 screw hole. We drilled and placed all screws in a similar fashion and locked the plate into place using the locking screwdriver. Next a irrigation was accomplished. Cross-table lateral x-ray was again accomplished to verify plate placement because of the patient's body habitus. We obtained second cross-table lateral and the patient was undraped so that we could visualize C7. The plate and screws and graft were adequately placed. Once we irrigated, we closed the platysma with interrupted stitch, deep dermis with interrupted stitch, Dermabond utilized on skin, cervical collar was placed. The patient was extubated, moved to the recovery room in good condition. The patient voiced an improvement in her symptoms in the recovery room when I interviewed her. For further details please refer to medical record.
== END 2019-08-20 10:21 | disposition home or self-care (01) | DRG 321 ==
LOC: M OR 06:05 → M MS5PR 13:40
PROVIDERS: ADMIT Orthopaedic Surgery; ATTEND Orthopaedic Surgery
PROC: 0RB30ZZ Excision of Cervical Vertebral Disc, Open Approach (ICD-10-PCS; 2019-08-19)
PROC: 0RH104Z Insertion of Internal Fixation Device into Cervical Vertebral Joint, Open Approach (ICD-10-PCS; 2019-08-19)
PROC: 0RG2070 Fusion of 2 or more Cervical Vertebral Joints with Autologous Tissue Substitute, Anterior Approach, Anterior Column, Open Approach (ICD-10-PCS; principal; 2019-08-19 07:30)
DX: M47.12 Other spondylosis with myelopathy, cervical region (principal); G82.54 Quadriplegia, C5-C7 incomplete; Z79.899 Other long term (current) drug therapy; Z88.8 Allergy status to other drugs, medicaments and biological substances; J45.909 Unspecified asthma, uncomplicated; E03.9 Hypothyroidism, unspecified; F41.9 Anxiety disorder, unspecified; F32.9 Major depressive disorder, single episode, unspecified; M32.10 Systemic lupus erythematosus, organ or system involvement unspecified; R26.0 Ataxic gait

== ENCOUNTER → 2019-12-16 | Outpatient (CLI) | payer OTHER ==
[~2019-12-16] MED LIST changes: +D31000TA2 PO; -LR 1,000 ML IV ONE; +PERC5TAB12 PO; -PERCOCET 5MG/325MG TAB PO ONE; -VITAD1000T PO
--- NOTE | 2019-12-16 23:37 | REP ---
RENAL ULTRASOUND: REASON FOR EXAM: Assess for hydronephrosis. There are no priors for comparison. FINDINGS: Multiple ultrasonographic images of the right kidney show the right kidney to measure 11.1 x 4.6 x 4.2 cm. The renal cortical echotexture is unremarkable. There are no masses. There is good corticomedullary differentiation. There is no hydronephrosis. There are no perinephric fluid collections. Multiple ultrasonographic images of the left kidney show the left kidney to measure 12.1 x 5.3 x 4.5 cm. The renal cortical echotexture is unremarkable. There are no masses. There is good corticomedullary differentiation. There is no hydronephrosis. There are no perinephric fluid collections. The urinary bladder was empty. IMPRESSION: Unremarkable renal ultrasonography. Electronically Signed by Andi Gary DO 12/17/2019 11:23 A
== END ==
LOC: M RAD 15:11
PROVIDERS: ATTEND Physical Medicine & Rehabilitation
DX: Z47.89 Encounter for other orthopedic aftercare (principal)

== ENCOUNTER 2021-07-14 12:54 | Emergency (ER) | payer OTHER ==
[~2021-07-14] VITALS: Ht 170.2 cm; Wt 106.5 kg
[2021-07-14 12:54] VITALS: BP 124/69
[~2021-07-14 12:54] MED LIST changes: -ALBU8.5H; -AMOX875T2 PO; -FLUTISP; -HYDR200T3; -OMEP-173; -TIZA10TA
[2021-07-14] MEDS ORDERED: HYDR200T3 (13:01)
[2021-07-14] MEDS ORDERED: ALBU8.5H (13:01)
[2021-07-14] MEDS ORDERED: TIZA10TA (13:01)
[2021-07-14] MEDS ORDERED: FLUTISP (13:01)
[2021-07-14] MEDS ORDERED: OMEP-173 (13:01)
[2021-07-14] MEDS ORDERED: AMOX875T2 PO (15:12)
[2021-07-14] MEDS ORDERED: AUGMENTIN 875 MG TAB PO ONE (15:15)
== END 2021-07-14 15:32 | disposition home or self-care (01) ==
LOC: M ED 12:54
DX: K02.9 Dental caries, unspecified (principal); E03.9 Hypothyroidism, unspecified; Z88.8 Allergy status to other drugs, medicaments and biological substances; Z79.899 Other long term (current) drug therapy; Z79.890 Hormone replacement therapy

== ENCOUNTER → 2021-07-14 | Outpatient (CLI) | payer OTHER ==
[~2021-07-14] MED LIST changes: +ALBU8.5H; +AMOX875T2 PO; +ERGO500029 PO; +FLUTISP; +HYDR200T3; +OMEP-173; +TIZA10TA; -VITA50005 PO
== END ==
LOC: M LABSMTC 10:53
PROVIDERS: ATTEND Anesthesiology
DX: Z01.812 Encounter for preprocedural laboratory examination (principal); Z20.822 Contact with and (suspected) exposure to COVID-19

== ENCOUNTER → 2021-07-14 | Outpatient (CLI) | payer OTHER ==
[2021-07-14 12:58] LABS: HEMOGLOBIN A1c 5.5 %
== END ==
LOC: M LAB 11:43
PROVIDERS: ATTEND Family Medicine Addiction Medicine
DX: E03.9 Hypothyroidism, unspecified (principal)

== ENCOUNTER → 2021-07-17 | Outpatient (CLI) | payer OTHER ==
[~2021-07-17] MED LIST changes: +ALBU8.5H; +AMOX875T2 PO; +FLUTISP; +HYDR200T3; +OMEP-173; +TIZA10TA
[2021-07-17 13:35] VITALS: BP 136/76
== END ==
LOC: M RAD 10:17
PROVIDERS: ATTEND Psychiatry & Neurology Neurology
DX: G37.9 Demyelinating disease of central nervous system, unspecified (principal); R20.2 Paresthesia of skin; R53.1 Weakness; Z98.1 Arthrodesis status; G95.0 Syringomyelia and syringobulbia; M51.24 Other intervertebral disc displacement, thoracic region

== ENCOUNTER → 2021-11-08 | Outpatient (CLI) | payer OTHER ==
[~2021-11-08] MED LIST changes: -D31000TA2 PO; +VITA100093 PO
== END ==
LOC: M SLEEP HO 10:09
PROVIDERS: ATTEND Nurse Practitioner Adult Health
DX: G47.30 Sleep apnea, unspecified (principal)

== ENCOUNTER → 2022-07-01 | Outpatient (CLI) | payer OTHER | LOC: M WHC 10:17 | PROVIDERS: ATTEND Family Medicine Addiction Medicine | DX: R10.11 Right upper quadrant pain (principal) ==

== ENCOUNTER → 2022-07-01 | Outpatient (CLI) | payer OTHER ==
[2022-07-01 15:27] LABS: BASO # 0.1 10^3/uL (0.0-0.2); BASO % 0.6 % (0.0-1.0); EOS # 0.4 10^3/uL (0.0-0.5); EOS % 3.7 % (0.0-3.0); HEMOGLOBIN 13.2 g/dl (12.0-15.5); LYMPH # 3.2 10^3/uL (1.5-5.0); LYMPH % 31.8 % (24.0-44.0); MEAN CORPUSCULAR HEMOGLOBIN 30.1 pg (27.0-33.0); MEAN CORPUSCULAR HGB CONC 31.4 g/dl (32.0-36.5); MEAN CORPUSCULAR VOLUME 95.7 fl (80.0-96.0); MONO # 0.7 10^3/uL (0.0-0.8); MONO % 7.4 % (2.0-8.0); NEUTROPHILS # 5.6 10^3/uL (1.5-8.5); PLATELET COUNT, AUTOMATED 323 10^3/uL (150-450); RED BLOOD COUNT 4.39 10^6/uL (4.00-5.40); WHITE BLOOD COUNT 10.1 10^3/uL (4.0-10.0)
[2022-07-01 15:42] LABS: URIC ACID 5.2 MG/DL (3.1-7.8)
[2022-07-01 15:45] LABS: ALBUMIN 3.8 G/DL (3.2-5.2); ALKALINE PHOSPHATASE 72 U/L (46-116); ALT/SGPT 15 U/L (7.0-40); AST/SGOT 20 U/L (<34); BILIRUBIN,TOTAL 0.2 MG/DL (0.3-1.2); BLOOD UREA NITROGEN 12 MG/DL (9-23); CALCIUM LEVEL 8.9 MG/DL (8.5-10.1); CARBON DIOXIDE LEVEL 28 MMOL/L (20-31); CHLORIDE LEVEL 104 MMOL/L (98-107); CREATININE FOR GFR 0.89 MG/DL (0.55-1.30); GLOMERULAR FILTRATION RATE > 60.0 (>58); GLUCOSE, FASTING 92 MG/DL (60-100); POTASSIUM SERUM 4.4 MMOL/L (3.5-5.1); SODIUM LEVEL 138 MMOL/L (136-145); TOTAL PROTEIN 7.6 G/DL (5.7-8.2)
[2022-07-01 16:44] LABS: ERYTHROCYTE SEDIMENTATION RATE 41 mm/hr (0-20)
== END ==
LOC: M PLALAB 11:01
PROVIDERS: ATTEND Physician Assistant Surgical
DX: M48.061 Spinal stenosis, lumbar region without neurogenic claudication (principal)

== ENCOUNTER → 2022-10-08 | Outpatient (CLI) | payer OTHER ==
[~2022-10-08] MED LIST changes: +FLUT50SP17; -FLUTISP; +METOCLOPRAMIDE INJ 10MG/2ML VIAL ONE; +MIDAZOLAM INJ 2MG/2ML VIAL As Ordered ONE; +diphenhydrAMINE 50MG/ML VIAL ONE; +propofoL 200 MG/20 ML VIAL ONE
[2022-10-08 09:45] VITALS: BP 109/69
== END ==
LOC: M RAD 07:05
PROVIDERS: ATTEND Physician Assistant Surgical
DX: M47.892 Other spondylosis, cervical region (principal)
CPT/HCPCS: 72141; J2250

== ENCOUNTER → 2023-11-14 | Outpatient (REF) | payer OTHER ==
[~2023-11-14] MED LIST changes: -FLUT50SP17; +FLUTISP; -HYDR200T3; +HYDR200T46; -METOCLOPRAMIDE INJ 10MG/2ML VIAL ONE; -MIDAZOLAM INJ 2MG/2ML VIAL As Ordered ONE; -diphenhydrAMINE 50MG/ML VIAL ONE; -propofoL 200 MG/20 ML VIAL ONE
[2023-11-14 18:52] LABS: ALBUMIN 3.6 G/DL (3.2-5.2); ALKALINE PHOSPHATASE 83 U/L (46-116); ALT/SGPT 12 U/L (7.0-40); AST/SGOT < 8 U/L (<34); BILIRUBIN,TOTAL 0.2 MG/DL (0.3-1.2); BLOOD UREA NITROGEN 8 MG/DL (9-23); CALCIUM LEVEL 8.8 MG/DL (8.5-10.1); CARBON DIOXIDE LEVEL 26 MMOL/L (20-31); CHLORIDE LEVEL 108 MMOL/L (98-107); CHOLESTEROL LEVEL 177 MG/DL (<200); CHOLESTEROL RISK RATIO 5.23 (<5); CREATININE FOR GFR 0.86 MG/DL (0.55-1.30); GLOMERULAR FILTRATION RATE > 60.0 (>58); GLUCOSE, FASTING 95 MG/DL (60-100); HDL CHOLESTEROL 33.8 MG/DL (>40); LDL CHOLESTEROL 126.4 MG/DL (<100); NON-HDL-C 143.2 MG/DL; POTASSIUM SERUM 4.3 MMOL/L (3.5-5.1); SODIUM LEVEL 139 MMOL/L (136-145); TOTAL PROTEIN 7.2 G/DL (5.7-8.2); TRIGLYCERIDES LEVEL 84 MG/DL (<150)
[2023-11-14 18:54] LABS: THYROID STIMULATING HORMONE 6.882 uIU/ML (0.55-4.78)
== END ==
LOC: M LAB REF 16:36
PROVIDERS: ATTEND Family Medicine Addiction Medicine
DX: M79.89 Other specified soft tissue disorders (principal); E03.9 Hypothyroidism, unspecified

== ENCOUNTER → 2025-03-18 | Outpatient (REF) | payer OTHER ==
[2025-03-18 16:36] LABS: BASO # 0.1 10^3/uL (0.0-0.2); BASO % 0.8 % (0.0-1.0); EOS # 0.4 10^3/uL (0.0-0.5); EOS % 4.2 % (0.0-3.0); LYMPH # 2.7 10^3/uL (1.5-5.0); LYMPH % 27.5 % (24.0-44.0); MONO # 0.7 10^3/uL (0.0-0.8); MONO % 7.3 % (2.0-8.0); NEUTROPHILS # 5.9 10^3/uL (1.5-8.5); NEUTROPHILS % 59.9 % (36.0-66.0); PLATELET COUNT, AUTOMATED 378 10^3/uL (150-450)
[2025-03-18 16:40] LABS: ALT/SGPT 19.0 U/L (7.0-40); AST/SGOT 18.0 U/L (<34); CALCIUM LEVEL 8.7 MG/DL (8.5-10.1); CARBON DIOXIDE LEVEL 27.0 MMOL/L (20-31); CHLORIDE LEVEL 104.0 MMOL/L (98-107); CHOLESTEROL LEVEL 213.0 MG/DL (<200); CHOLESTEROL RISK RATIO 5.62 (<5); CREATININE FOR GFR 0.84 MG/DL (0.55-1.30); GLOMERULAR FILTRATION RATE 88.4 (>58); LDL CHOLESTEROL 149.5 MG/DL (<100); NON-HDL-C 175.1 MG/DL; POTASSIUM SERUM 4.6 MMOL/L (3.5-5.1); SODIUM LEVEL 139.0 MMOL/L (136-145); TRIGLYCERIDES LEVEL 128.0 MG/DL (<150)
== END ==
LOC: M LAB REF 16:08
PROVIDERS: ATTEND Family Medicine Addiction Medicine
DX: E03.9 Hypothyroidism, unspecified (principal)